=== PATIENT | male | born 1975 | race American Indian/Alaskan Native ===

== ENCOUNTER 2017-06-07 01:47 | Emergency (ER) | payer BC ==
[2017-06-07 01:58] VITALS: BP 128/80
[2017-06-07 03:18] LABS: Bilirubin,Urine NEG (Negative); Blood,Urine SM (Negative); Color,Urine Yellow (Yellow); Mucus,Urine FEW /HPF
[2017-06-07 03:22] LABS: WBC,Urine > 182.0 /HPF (0.0-6.0)
[2017-06-07] MEDS ORDERED: XYLOCAINE 1% MPF 5 mL INFILTRATI ONE (03:40)
[2017-06-07] MEDS ORDERED: ZITHROMAX PO ONE (03:40)
[2017-06-07] MEDS ORDERED: ROCEPHIN IM ONE (03:40)
--- NOTE | 2017-06-07 03:43 | Emergency Department Report ---
ED Male HPI - General Chief complaint: Urogenital-Male Stated complaint: SHARP PAIN IN PENIS Time Seen by Provider: 06/07/17 03:02 Source: patient Mode of arrival: Ambulatory Limitations: No Limitations - History of Present Illness Initial comments: pt is a 42 y/o aam who presents for penile pain 4/10 burn irritation exacerbated by voiding pt denies penile discharge no rash no lesions no open sore no abdominal pain no flank pain no fever or chills, symptoms x 3 last unprotected sex 2 days ago. pt states I he want to be checked out. MD Complaint: dysuria Onset/Timin -: days(s) Location: penis Radiation: none Severity: moderate Severity scale (0 -10): 5 Quality: burning Consistency: intermittent Improves with: none Worsens with: urination recent surgery denies: discharge, swelling, mass, rash, urinary retention, blood in urine, dysuria, fever, nausea/vomiting - Related Data Sexually active: Yes Previous Rx's Medication Instructions Recorded Last Taken Type Butalb/Acetamin/Caff 50-325-40 1 each PO Q4H PRN #30 tablet 12/15/13 Unknown Rx [Fioricet] Doxycycline [Vibramycin CAP] 100 mg PO BID #20 capsule 06/07/17 Unknown Rx Allergies Allergy/AdvReac Type Severity Reaction Status Date / Time No Known Allergies Allergy Verified 12/14/13 20:39 ED Review of Systems ROS: Stated complaint: SHARP PAIN IN PENIS Other details as noted in HPI Constitutional: denies: chills, fever Eyes: denies: eye pain, eye discharge, vision change ENT: denies: ear pain, throat pain Respiratory: denies: cough, shortness of breath, wheezing Cardiovascular: denies: chest pain, palpitations Endocrine: no symptoms reported Gastrointestinal: denies: abdominal pain, nausea, diarrhea Genitourinary: urgency, dysuria, frequency. denies: hematuria, discharge, testicular pain, testicular mass Musculoskeletal: denies: back pain, joint swelling, arthralgia Skin: denies: rash, lesions Neurological: as per HPI Psychiatric: as per HPI Hematological/Lymphatic: denies: easy bleeding, easy bruising ED Past Medical Hx - Past Medical History Previous Medical History?: No - Surgical History Past Surgical History?: Yes Additional Surgical History: inguinial hernia, right wrist - Social History Smoking Status: Never Smoker Substance Use Type: None - Medications Home Medications: Home Medications Medication Instructions Recorded Confirmed Last Taken Type Butalb/Acetamin/Caff 50-325-40 1 each PO Q4H PRN #30 tablet 12/15/13 Unknown Rx [Fioricet] Doxycycline [Vibramycin CAP] 100 mg PO BID #20 capsule 06/07/17 Unknown Rx ED Physical Exam - General Limitations: No Limitations General appearance: alert, in no apparent distress - Head Head exam: Present: atraumatic, normocephalic - Eye Eye exam: Present: normal appearance - ENT ENT exam: Present: mucous membranes moist - Neck Neck exam: Present: normal inspection, full ROM. Absent: lymphadenopathy - Respiratory Respiratory exam: Present: normal lung sounds bilaterally. Absent: respiratory distress, wheezes, stridor, chest wall tenderness, accessory muscle use, decreased breath sounds, prolonged expiratory - Cardiovascular Cardiovascular Exam: Present: regular rate, normal rhythm, normal heart sounds. Absent: systolic murmur, diastolic murmur, rubs, gallop - GI/Abdominal GI/Abdominal exam: Present: soft, normal bowel sounds. Absent: distended, tenderness, guarding, rebound, rigid, organomegaly, mass, bruit, pulsatile mass , hernia - Rectal Rectal exam: Present: deferred - exam: Present: other (exam deferred per patient ) - Extremities Exam Extremities exam: Present: normal inspection. Absent: full ROM, tenderness - Back Exam Back exam: Present: normal inspection, full ROM. Absent: tenderness, CVA tenderness (R), CVA tenderness (L), muscle spasm, paraspinal tenderness, vertebral tenderness, rash noted - Neurological Exam Neurological exam: Present: alert, oriented X3, CN II-XII intact, normal gait, reflexes normal. Absent: motor sensory deficit - Psychiatric Psychiatric exam: Present: normal affect, normal mood, suicidal ideation. Absent: depressed, agitated, anxious, flat affect, manic, homicidal ideation - Skin Skin exam: Present: warm, dry, intact, normal color. Absent: rash, cyanosis, diaphoretic, erythema, urticaria, vesicles, petechiae, pallor, abrasion, ecchymosis ED Course Vital Signs 06/07/17 01:54 Temperature 98.9 F Pulse Rate 86 Respiratory 20 Rate Blood Pressure 128/80 O2 Sat by Pulse 100 Oximetry ED Medical Decision Making - Lab Data Laboratory Tests 06/07/17 03:05 Urine Color Yellow Urine Turbidity Slightly-cloudy Urine pH 5.0 Ur Specific [place] 1.023 Urine Protein 30 mg/dl Urine Glucose (UA) Neg Urine Ketones 20 Urine Blood Sm Urine Nitrite Neg Urine Bilirubin Neg Urine Urobilinogen 4.0 Ur Leukocyte Esterase Lg Urine WBC (Auto) > 182.0 H Urine RBC (Auto) 16.0 Urine Mucus Few - Medical Decision Making pt present for std exposure , there is no hematuria no open lesion plan: tx for STD follow up with health department in 2-3 days for hiv screening. pt tx with rocephin , azithromycin pt dc'd to home with doxycycline 100 mg po bid x 10 days pt verbalized agreement and understanding of discharge plan. Critical care attestation.: If time is entered above; I have spent that time in minutes in the direct care of this critically ill patient, excluding procedure time. ED Disposition Clinical Impression: STD (male), Dysuria UTI (urinary tract infection) Qualifiers: Urinary tract infection type: acute cystitis Hematuria presence: without hematuria Qualified Code(s): N30.00 - Acute cystitis without hematuria Disposition: DC-01 TO HOME OR SELFCARE Is pt being admited?: No Does the pt Need Aspirin: No Condition: Good Instructions: Sexually Transmitted Diseases (ED) Prescriptions: Doxycycline [Vibramycin CAP] 100 mg PO BID #20 capsule Referrals: MAY LOPEZ MD [Primary Care Provider] - 3-5 Days Forms: Work/School Release Form(ED) Time of Disposition: 03:54
== END 2017-06-07 04:15 | disposition home or self-care (01) ==
LOC: ED 01:47
DX: N30.00 Acute cystitis without hematuria (principal); A64 Unspecified sexually transmitted disease; R30.0 Dysuria
CPT/HCPCS: 81001; 96372; 99283; J0696

== ENCOUNTER 2017-11-22 20:29 | Inpatient (IN) | payer BC ==
[~2017-11-22 20:29] MED LIST: PERCOCET 5/325 PO ONE
[2017-11-22] MEDS ORDERED: NORCO 5/325 ONE (21:04)
--- NOTE | 2017-11-22 22:23 | XRay Report ---
FINAL REPORT PROCEDURE: XR ANKLE BILAT 3+V TECHNIQUE: LEFT ankle radiographs, AP, lateral, and oblique views. CPT 71289 HISTORY: pain and swelling r/t injury COMPARISON: No prior studies are available for comparison. FINDINGS: Comminuted fracture is noted involving anterior and posterior portions of calcaneus associated with severe degree of soft tissue swelling on the lateral aspect. Tibia and fibula appear intact.. IMPRESSION: Acute comminuted fracture of the calcaneus.. TECHNIQUE: RIGHT ankle radiographs, AP, lateral, and oblique views. CPT 22644 HISTORY: pain and swelling r/t injury COMPARISON: No prior studies are available for comparison. FINDINGS: Acute comminuted fractures are noted involving medial and lateral malleoli and the posterior distal tibial metaphysis. Posterior distal tibial metaphyseal fragment is displaced by about 1.3 centimeters. There are no radiopaque foreign bodies.. IMPRESSION: Trimalleolar fracture.
--- NOTE | 2017-11-22 23:26 | Emergency Department Report ---
ED Lower Extremity HPI - General Chief Complaint: Extremity Injury, Lower Stated Complaint: ANKLES PAIN BILATERAL Time Seen by Provider: 11/22/17 23:01 Source: family Mode of arrival: Wheelchair Limitations: No Limitations - History of Present Illness Initial Comments: 42-year-old -[place] male comes in complaining of bilateral ankle pain and swelling. At approximate 1600 patient was jumping over a 6 foot fence when he landed he injured both ankles. Patient comes in with obvious swelling in severe distress. She reports no past medical history currently takes no medications on a daily basis has a history of wrist surgery and hernia surgery. He currently taking no meds at this time. Has no known drug allergies. He reports his left foot is a 10 out of 10 where his right foot to 7 out of 10. MD Complaint: ankle injury, foot injury -: This afternoon Time: 16:00 Injury: Ankle: Left, Right, Foot: Left, Right Type of Injury: blunt Place: work Severity: severe Severity scale (0 -10): 10 Improves With: nothing Worsens With: weight bearing Context: fall (over 6 foot he landed on his feet) Associated Symptoms: unable to bear weight - Related Data Previous Rx's Medication Instructions Recorded Last Taken Type Butalb/Acetamin/Caff 50-325-40 1 each PO Q4H PRN #30 tablet 12/15/13 Unknown Rx [Fioricet] Doxycycline [Vibramycin CAP] 100 mg PO BID #20 capsule 06/07/17 Unknown Rx Allergies Allergy/AdvReac Type Severity Reaction Status Date / Time No Known Allergies Allergy Verified 12/14/13 20:39 ED Review of Systems ROS: Stated complaint: ANKLES PAIN BILATERAL Other details as noted in HPI Comment: All other systems reviewed and negative Constitutional: denies: chills, fever Eyes: denies: eye pain, eye discharge, vision change Musculoskeletal: joint swelling (bilateral feet and ankle), arthralgia ( bilateral feet pain and ankle pain) Skin: denies: rash, lesions Neurological: denies: headache, weakness, paresthesias Psychiatric: denies: anxiety, depression Hematological/Lymphatic: denies: easy bleeding, easy bruising ED Past Medical Hx - Past Medical History Previous Medical History?: No - Surgical History Additional Surgical History: inguinial hernia, right wrist - Social History Smoking Status: Never Smoker Substance Use Type: None - Medications Home Medications: Home Medications Medication Instructions Recorded Confirmed Last Taken Type Butalb/Acetamin/Caff 50-325-40 1 each PO Q4H PRN #30 tablet 12/15/13 Unknown Rx [Fioricet] Doxycycline [Vibramycin CAP] 100 mg PO BID #20 capsule 06/07/17 Unknown Rx ED Physical Exam - General Limitations: No Limitations General appearance: alert, in no apparent distress - Head Head exam: Present: atraumatic, normocephalic - Eye Eye exam: Present: EOMI - ENT ENT exam: Present: mucous membranes moist - Neck Neck exam: Present: normal inspection - Respiratory Respiratory exam: Present: normal lung sounds bilaterally. Absent: respiratory distress - Expanded Lower Extremity Exam Left Ankle exam: Present: tenderness, swelling Foot/Toe exam: Present: tenderness, swelling Neuro vascular tendon exam: Present: no vascular compromise Right Ankle exam: Present: tenderness, swelling Foot/Toe exam: Present: tenderness, swelling Neuro vascular tendon exam: Present: no vascular compromise - Neurological Exam Neurological exam: Present: alert, oriented X3 - Psychiatric Psychiatric exam: Present: normal affect, normal mood - Skin Skin exam: Present: warm, dry, intact, normal color. Absent: rash ED Course Vital Signs 11/22/17 20:56 Temperature 98.4 F Pulse Rate 92 H Respiratory 18 Rate Blood Pressure 103/56 O2 Sat by Pulse 99 Oximetry ED Lower Extremity MDM - Lab Data Result diagrams: 11/22/17 23:33 11/22/17 23:33 - Radiology Data Radiology results: report reviewed, image reviewed INAL REPORT PROCEDURE: XR ANKLE BILAT 3+V TECHNIQUE: LEFT ankle radiographs, AP, lateral, and oblique views. CPT 33226 HISTORY: pain and swelling r/t injury COMPARISON: No prior studies are available for comparison. FINDINGS: Comminuted fracture is noted involving anterior and posterior portions of calcaneus associated with severe degree of soft tissue swelling on the lateral aspect. Tibia and fibula appear intact.. IMPRESSION: Acute comminuted fracture of the calcaneus.. TECHNIQUE: RIGHT ankle radiographs, AP, lateral, and oblique views. CPT 06153 HISTORY: pain and swelling r/t injury COMPARISON: No prior studies are available for comparison. FINDINGS: Acute comminuted fractures are noted involving medial and lateral malleoli and the posterior distal tibial metaphysis. Posterior distal tibial metaphyseal fragment is displaced by about 1.3 centimeters. There are no radiopaque foreign bodies.. IMPRESSION: Trimalleolar fracture. Transcribed By: [facility] Dictated By: GALI MILLER Electronically Authenticated By: GALI MILLER Signed Date/Time: 11/22/172221 DD/ 21 TD/TT: 11/22/172221 - Medical Decision Making Patient has been evaluated by this provider fast track. Percocet given for pain management in fast track. Patient had x-rays of both feet which shows comminuted fractures and heel and ankle. Right ankle left heel Patient's in place and IV with fluids CBC CMP and CK ordered. I have made attempt to call [facility] the have not gotten back with me. I called and spoke to Dr. Hernández he says have hospitalist admit and he will consult tomorrow. Spoke with Doctor Allyson Delarosa, [facility] orders for admissions. Critical care attestation.: If time is entered above; I have spent that time in minutes in the direct care of this critically ill patient, excluding procedure time. ED Disposition Clinical Impression: Left calcaneal fracture Qualifiers: Encounter type: initial encounter Calcaneus location: physis (incl. Salter- Taylor) Fracture type: closed Salter-Taylor Fracture Type: unspecified configuration Qualified Code(s): S99.002A - Unspecified physeal fracture of left calcaneus, initial encounter for closed fracture Closed right trimalleolar fracture Qualifiers: Encounter type: initial encounter Qualified Code(s): S82.851A - Displaced trimalleolar fracture of right lower leg, initial encounter for closed fracture Disposition: -09 OP ADMIT IP TO THIS HOSP Is pt being admited?: Yes Does the pt Need Aspirin: No Condition: Stable Referrals: PRIMARY CARE, [Primary Care Provider] - 3-5 Days
[2017-11-22] MEDS ORDERED: DILAUDID IV ONE (23:27)
[2017-11-22] MEDS ORDERED: NACL 0.9% 1000 ML 1,000 ML IV ONE (23:27)
[2017-11-22 23:56] LABS: Hematocrit 43.4 % (35.5-45.6); Hemoglobin 14.8 gm/dl (11.8-15.2); Mean Corpuscular HGB Conc 34 % (32-34); Mean Corpuscular Hemoglobin 29 pg (28-32); Mean Corpuscular Volume 85 fl (84-94); Platelet Count 262 K/mm3 (140-440); Red Cell Distribution Width 13.9 % (13.2-15.2)
[2017-11-23 00:19] LABS: Alanine Aminotransferase 12 units/L (7-56); Albumin 4.6 g/dL (3.9-5); BUN/Creatinine Ratio 12; Blood Urea Nitrogen 12 mg/dL (9-20); Calcium 9.3 mg/dL (8.4-10.2); Hemolysis Index 32
[2017-11-23 03:52] LABS: Band Neutrophils # (Manual) 1.1 K/mm3; Basophils % (Manual) 0 % (0.0-1.8); Eosinophils % (Manual) 0 % (0.0-4.3); RBC Morphology Normal; Total Cells Counted 100
--- NOTE | 2017-11-23 03:58 | History and Physical Report ---
History of Present Illness Date of examination: 11/23/17 Date of admission: 11/23/17 01:41 History of present illness: History of Present Illness Initial Comments: 42-year-old -[place] male comes in complaining of bilateral ankle pain and swelling. At approximate 1600 patient was jumping over a 6 foot fence when he landed he injured both ankles. Patient comes in with obvious swelling in severe distress. She reports no past medical history currently takes no medications on a daily basis has a history of wrist surgery and hernia surgery. He currently taking no meds at this time. Has no known drug allergies. He reports his left foot is a 10 out of 10 where his right foot to 7 out of 10. MD Complaint: ankle injury, foot injury -: This afternoon Time: 16:00 Injury: Ankle: Left, Right, Foot: Left, Right Type of Injury: blunt Place: work Severity: severe Severity scale (0 -10): 10 Improves With: nothing Worsens With: weight bearing Context: fall (over 6 foot he landed on his feet) Associated Symptoms: unable to bear weight - Related Data Previous Rx's Medication Instructions Recorded Last Taken Type Butalb/Acetamin/Caff 50-325-40 1 each PO Q4H PRN #30 tablet 12/15/13 Unknown Rx [Fioricet] Doxycycline [Vibramycin CAP] 100 mg PO BID #20 capsule 06/07/17 Unknown Rx Allergies Allergy/AdvReac Type Severity Reaction Status Date / Time No Known Allergies Allergy Verified 12/14/13 20:39 ED Review of Systems ROS: Stated complaint: ANKLES PAIN BILATERAL Other details as noted in HPI Comment: All other systems reviewed and negative Constitutional: denies: chills, fever Eyes: denies: eye pain, eye discharge, vision change Musculoskeletal: joint swelling (bilateral feet and ankle), arthralgia ( bilateral feet pain and ankle pain) Skin: denies: rash, lesions Neurological: denies: headache, weakness, paresthesias Psychiatric: denies: anxiety, depression Hematological/Lymphatic: denies: easy bleeding, easy bruising ED Past Medical Hx - Past Medical History Previous Medical History?: No - Surgical History Additional Surgical History: inguinial hernia, right wrist - Social History Smoking Status: Never Smoker Substance Use Type: None - Medications Home Medications: Home Medications Medication Instructions Recorded Confirmed Last Taken Type Butalb/Acetamin/Caff 50-325-40 1 each PO Q4H PRN #30 tablet 12/15/13 Unknown Rx [Fioricet] Doxycycline [Vibramycin CAP] 100 mg PO BID #20 capsule 06/07/17 Unknown Rx Medications and Allergies Allergies Allergy/AdvReac Type Severity Reaction Status Date / Time No Known Allergies Allergy Verified 12/14/13 20:39 Home Medications Medication Instructions Recorded Confirmed Last Taken Type Butalb/Acetamin/Caff 50-325-40 1 each PO Q4H PRN #30 tablet 12/15/13 Unknown Rx [Fioricet] Doxycycline [Vibramycin CAP] 100 mg PO BID #20 capsule 06/07/17 Unknown Rx Exam - Constitutional Vitals: Temp Pulse Resp BP Pulse Ox 98.4 F 78 16 103/56 99 11/22/17 20:56 11/23/17 00:59 11/23/17 00:59 11/22/17 20:56 11/23/17 00:59 Results - Labs CBC & Chem 7: 11/22/17 23:33 11/22/17 23:33 Labs: Laboratory Last Values WBC 15.0 K/mm3 (4.5-11.0) H 11/22/17 23:33 RBC 5.10 M/mm3 (3.65-5.03) H 11/22/17 23:33 Hgb 14.8 gm/dl (11.8-15.2) 11/22/17 23:33 Hct 43.4 % (35.5-45.6) 11/22/17 23:33 MCV 85 fl (84-94) 11/22/17 23:33 MCH 29 pg (28-32) 11/22/17 23:33 MCHC 34 % (32-34) 11/22/17 23:33 RDW 13.9 % (13.2-15.2) 11/22/17 23:33 Plt Count 262 K/mm3 (140-440) 11/22/17 23:33 Add Manual Diff Complete 11/22/17 23:33 Total Counted 100 11/22/17 23:33 Seg Neutrophils % Extruder 11/22/17 23:33 Seg Neuts % (Manual) 78.0 % (40.0-70.0) H 11/22/17 23:33 Band Neutrophils % 7.0 % 11/22/17 23:33 Lymphocytes % (Manual) 8.0 % (13.4-35.0) L 11/22/17 23:33 Reactive Lymphs % (Man) 0 % 11/22/17 23:33 Monocytes % (Manual) 7.0 % (0.0-7.3) 11/22/17 23:33 Eosinophils % (Manual) 0 % (0.0-4.3) 11/22/17 23:33 Basophils % (Manual) 0 % (0.0-1.8) 11/22/17 23:33 Metamyelocytes % 0 % 11/22/17 23:33 Myelocytes % 0 % 11/22/17 23:33 Promyelocytes % 0 % 11/22/17 23:33 Blast Cells % 0 % 11/22/17 23:33 Nucleated RBC % Not Reportable 11/22/17 23:33 Seg Neutrophils # Man 11.7 K/mm3 (1.8-7.7) H 11/22/17 23:33 Band Neutrophils # 1.1 K/mm3 11/22/17 23:33 Lymphocytes # (Manual) 1.2 K/mm3 (1.2-5.4) 11/22/17 23:33 Abs React Lymphs (Man) 0.0 K/mm3 11/22/17 23:33 Monocytes # (Manual) 1.1 K/mm3 (0.0-0.8) H 11/22/17 23:33 Eosinophils # (Manual) 0.0 K/mm3 (0.0-0.4) 11/22/17 23:33 Basophils # (Manual) 0.0 K/mm3 (0.0-0.1) 11/22/17 23:33 Metamyelocytes # 0.0 K/mm3 11/22/17 23:33 Myelocytes # 0.0 K/mm3 11/22/17 23:33 Promyelocytes # 0.0 K/mm3 11/22/17 23:33 Blast Cells # 0.0 K/mm3 11/22/17 23:33 WBC Morphology Not Reportable 11/22/17 23:33 Hypersegmented Neuts Not Reportable 11/22/17 23:33 Hyposegmented Neuts Not Reportable 11/22/17 23:33 Hypogranular Neuts Not Reportable 11/22/17 23:33 Smudge Cells Not Reportable 11/22/17 23:33 Toxic Granulation Not Reportable 11/22/17 23:33 Toxic Vacuolation Not Reportable 11/22/17 23:33 Dohle Bodies Not Reportable 11/22/17 23:33 Pelger-Huet Anomaly Not Reportable 11/22/17 23:33 Harika Rods Not Reportable 11/22/17 23:33 Platelet Estimate Appears normal 11/22/17 23:33 Clumped Platelets Not Reportable 11/22/17 23:33 Plt Clumps, EDTA Not Reportable 11/22/17 23:33 Large Platelets Not Reportable 11/22/17 23:33 Giant Platelets Not Reportable 11/22/17 23:33 Platelet Satelliting Not Reportable 11/22/17 23:33 Plt Morphology Comment Not Reportable 11/22/17 23:33 RBC Morphology Normal 11/22/17 23:33 Dimorphic RBCs Not Reportable 11/22/17 23:33 Polychromasia Not Reportable 11/22/17 23:33 Hypochromasia Not Reportable 11/22/17 23:33 Poikilocytosis Not Reportable 11/22/17 23:33 Anisocytosis Not Reportable 11/22/17 23:33 Microcytosis Not Reportable 11/22/17 23:33 Macrocytosis Not Reportable 11/22/17 23:33 Spherocytes Not Reportable 11/22/17 23:33 Pappenheimer Bodies Not Reportable 11/22/17 23:33 Sickle Cells Not Reportable 11/22/17 23:33 Target Cells Not Reportable 11/22/17 23:33 Tear Drop Cells Not Reportable 11/22/17 23:33 Ovalocytes Not Reportable 11/22/17 23:33 Helmet Cells Not Reportable 11/22/17 23:33 S[place] Bodies Not Reportable 11/22/17 23:33 [place] Rings Not Reportable 11/22/17 23:33 Yo Cells Not Reportable 11/22/17 23:33 Bite Cells Not Reportable 11/22/17 23:33 Crenated Cell Not Reportable 11/22/17 23:33 Elliptocytes Not Reportable 11/22/17 23:33 Acanthocytes (Spur) Not Reportable 11/22/17 23:33 Rouleaux Not Reportable 11/22/17 23:33 Hemoglobin C Crystals Not Reportable 11/22/17 23:33 Schistocytes Not Reportable 11/22/17 23:33 Malaria parasites Not Reportable 11/22/17 23:33 Kody Bodies Not Reportable 11/22/17 23:33 Hem Pathologist Commnt No 11/22/17 23:33 Sodium 137 mmol/L (137-145) 11/22/17 23:33 Potassium 4.2 mmol/L (3.6-5.0) 11/22/17 23:33 Chloride 98.2 mmol/L (98-107) 11/22/17 23:33 Carbon Dioxide 23 mmol/L (22-30) 11/22/17 23:33 Anion Gap 20 mmol/L 11/22/17 23:33 BUN 12 mg/dL (9-20) 11/22/17 23:33 Creatinine 1.0 mg/dL (0.8-1.5) 11/22/17 23:33 Estimated GFR > 60 ml/min 11/22/17 23:33 BUN/Creatinine Ratio 12 % 11/22/17 23:33 Glucose 123 mg/dL (75-100) H 11/22/17 23:33 Calcium 9.3 mg/dL (8.4-10.2) 11/22/17 23:33 Total Bilirubin 0.70 mg/dL (0.1-1.2) 11/22/17 23:33 AST 30 units/L (5-40) 11/22/17 23:33 ALT 12 units/L (7-56) 11/22/17 23:33 Alkaline Phosphatase 62 units/L (35-129) 11/22/17 23:33 Total Creatine Kinase 226 units/L (55-170) H 11/22/17 23:33 Total Protein 8.2 g/dL (6.3-8.2) 11/22/17 23:33 Albumin 4.6 g/dL (3.9-5) 11/22/17 23:33 Albumin/Globulin Ratio 1.3 % 11/22/17 23:33
[2017-11-23] MEDS ORDERED: MORPHINE ONE (04:35)
[2017-11-23] MEDS ORDERED: ZOFRAN ONE (04:36)
--- NOTE | 2017-11-23 06:23 | History and Physical Report ---
CHIEF COMPLAINT: Pain in both the ankles. HISTORY OF PRESENT ILLNESS: A 42-year-old male with no significant past medical history, comes in for pain in both the feet and ankles. The patient apparently jumped from a 6 feet fence. The patient was practicing for an obstacle course for a new job. The patient is in law enforcement. The patient did not land properly and twisted both his ankles. The patient was evaluated in the Emergency Room and was found to have fractures in both the ankles. PAST MEDICAL HISTORY: No significant past medical history. PAST SURGICAL HISTORY: Right wrist surgery. SOCIAL HISTORY: Does not smoke. No alcohol, no recreational drugs. FAMILY HISTORY: Noncontributory. REVIEW OF SYSTEMS: The patient has severe pain in both ankles and both the feet 10 x 10. Otherwise, review of systems is essentially negative. A 14-point review of systems done. PHYSICAL EXAMINATION: GENERAL: Young male, cooperative during examination. VITAL SIGNS: Blood pressure is 136/76, respirations are 16, temperature 98, and pulse is 70. HEENT: Unremarkable. Pupils are equal and reactive. NECK: Supple, no lymphadenopathy, no thyromegaly. LUNGS: Clear to auscultation and percussion. Good air entry. CARDIOVASCULAR: S1, S2 heard. No gallop, no murmur, no rub. Apical impulse in left fifth intercostal space and midclavicular line. ABDOMEN: Soft and benign. No hepatosplenomegaly. No guarding, no rigidity. Hernial orifices are normal. EXTREMITIES: Good pedal pulses. Severe tenderness in both the ankles and heels near the tibiofibular joint. Pulses, dorsalis pedis well felt. CENTRAL NERVOUS SYSTEM: Alert and oriented x 4, nonfocal exam. SKIN: Normal. IMAGING STUDIES: Left ankle shows comminuted fracture involving anterior and posterior portions of calcaneus associated with severe degree of soft tissue swelling on the lateral aspect. Tibia and fibula appear intact. Right ankle x-ray shows acute comminuted fractures involving the medial and lateral malleoli and the posterior distal tibial metaphysis. Posterior distal tibial metaphyseal fragment is displaced by about 1.3 cm. There are no radiopaque foreign bodies. Final impression was trimalleolar fracture. ASSESSMENT AND PLAN: 1. Right trimalleolar fracture. Orthopedics consulted. The patient may end up needing surgery. We will defer to the orthopedic surgeon, Dr. Hernández regarding surgery versus non-surgery. The patient will end up needing rehab and cast. Pain control in the meantime. 2. Left calcaneal fracture. The patient on IV morphine and IV Zofran. Orthopedics, Dr. Hernández consulted. 3. Deep venous thrombosis prophylaxis, Lovenox 40 mg subcutaneous daily. JOB# [id number] VSM/NTS
[2017-11-23] MEDS ORDERED: SODIUM CHLORIDE FLUSH SYRINGE 10 ML IV PRN (07:57)
[2017-11-23] MEDS ORDERED: TYLENOL PO PRN (07:57)
--- NOTE | 2017-11-23 07:57 | Event Note ---
Date: 11/23/17 See dictated H/p inreports Patient jumped from a height of 6 ftfence for practice L Calcaneal fracture Rt Trimalleolar fracture Dr Hernández consulted
[2017-11-23] MEDS ORDERED: NACL 0.9% 1000 ML 1,000 ML IV SCH (08:00)
[2017-11-23] MEDS: MORPHINE IV PRN ×3 (09:39→13:49)
--- NOTE | 2017-11-23 09:49 | Event Note ---
Date: 11/23/17 Patient seen and examined, in no acute distress. ice packing to ankle, family requesting transfer to [facility] due to proximity to family.
[2017-11-23] MEDS ORDERED: SODIUM CHLORIDE FLUSH SYRINGE 10 ML IV SCH (10:00)
[2017-11-23] MEDS ORDERED: DILAUDID IV PRN (10:00)
[2017-11-23] MEDS ORDERED: PEPCID IV SCH (10:00)
[2017-11-23] MEDS ORDERED: ZOFRAN IV PRN (10:00)
--- NOTE | 2017-11-23 14:04 | Cat Scan Report ---
CT ANGIO ABD/FEMORAL ABD AORTA: HISTORY: Trauma, preoperative evaluation. TECHNIQUE: Helical CT imaging with 1.25mm reconstructions following IV contrast. Sagittal and Coronal 2D reformatted images. 3 dimensional volume rendering technique. Stenosis was measured using NASCET criteria. COMPARISON: none. FINDINGS: ABDOMINAL AORTA: Less than 20% stenosis. COMMON ILIAC ARTERIES: Less than 20% stenosis. EXTERNAL ILIAC ARTERIES: Less than 20% stenosis. INTERNAL ILIAC ARTERIES: Less than 20% stenosis. RIGHT LOWER EXTREMITY: Less than 20% stenosis. LEFT LOWER EXTREMITY: Less than 20% stenosis. IMPRESSION: Normal CTA aorta and bilateral femoral runoff. No evidence for atherosclerotic disease, stenosis or occlusion.
[2017-11-23 15:28] VITALS: BP 144/97
[2017-11-23] MEDS ORDERED: LOVENOX SUB-Q SCH (22:00)
== END 2017-11-23 17:20 | disposition short-term general hospital (02) | DRG 563 ==
LOC: ED 20:29 → 3B-SURG 11-23 01:41
PROVIDERS: ADMIT Internal Medicine; ATTEND Internal Medicine
DX: S82.851A Displaced trimalleolar fracture of right lower leg, initial encounter for closed fracture (principal); S92.002A Unspecified fracture of left calcaneus, initial encounter for closed fracture; W18.39XA Other fall on same level, initial encounter; M25.471 Effusion, right ankle; M25.472 Effusion, left ankle; Z79.899 Other long term (current) drug therapy; Y93.39 Activity, other involving climbing, rappelling and jumping off; Y92.89 Other specified places as the place of occurrence of the external cause; Y99.8 Other external cause status
CPT/HCPCS: 36415; 75635; 80053; 82550; 83036; 85007; 85025; 96361; 96374; J1170; J2270; J2405; J7030; Q9967